=== PATIENT | male | born 1995 | race African-American/Black ===

== ENCOUNTER 2022-03-10 04:20 | Emergency (ER) | payer OTHER ==
--- NOTE | 2022-03-10 07:00 | NUR ---
PATIENT LEFT WITHOUT BEING SEEN BY DR. TURNER. NO FURTHER CARE PROVIDED FOR PATIENT.
== END 2022-03-10 06:30 | disposition left against medical advice (07) ==
LOC: MED 04:20
DX: R09.81 Nasal congestion (principal); Z53.21 Procedure and treatment not carried out due to patient leaving prior to being seen by health care provider